=== PATIENT | male | born 1965 | race Caucasian/White ===

== ENCOUNTER 2017-11-11 13:52 | Inpatient (IN) | payer BC ==
[~2017-11-11] VITALS: Ht 177.8 cm; Wt 126.0 kg
[~2017-11-11 13:52] MED LIST: ALEVE220 M2 PO; AZOR 10/40 M1 TABLET PO; CRESTOR; CRESTOR40 MG PO; LO-DOSE ASPIRIN81 M1 PO; METOPROLOL SUCC25 MG PO; [UNRECOGNIZED DRUG - REMARK]
[2017-11-11 15:06] LABS: EOSINOPHIL (%) 0.8 % (0-5); EOSINOPHIL COUNT 0.1 K/uL (0-0.3); HEMATOCRIT 43.1 % (38.0-50.0); IMMATURE GRANULOCYTE COUNT 0.1 K/uL; LYMPHOCYTE COUNT 1.7 K/uL (1.0-2.8); MCH 30.1 PG (29.0-34.0); MCHC 34.1 G/DL (30.0-36.0); MCV 88.3 FL (86-99); MONOCYTE (%) 8.1 % (3-12); NEUTROPHIL (%) 75.5 % (45-76); PLATELET COUNT 241 K/uL (156-360); RBC DIS.WIDTH-CV 14.1 % (11.8-14.6); RBC DIS.WIDTH-SD 45.7 % (39-53); RED BLOOD COUNT 4.88 M/uL (4.00-5.50); WHITE BLOOD COUNT 11.9 K/uL (4.1-10.2)
[2017-11-11 15:20] LABS: CHLORIDE 103 mEq/L (99-109); POTASSIUM 3.3 mEq/L (3.7-5.4); SODIUM 142 mEq/L (136-147)
[2017-11-11 15:22] LABS: GLUCOSE 120 mg/dL (70-99)
[2017-11-11 15:23] LABS: ANION GAP 13 MEQ/L (2-14)
[2017-11-11 15:26] LABS: GFR ESTIMATE (CALCULATED) > 59 mL/min/ (58.99-99999)
[2017-11-11 15:27] LABS: UREA NITROGEN (BUN) 14 mg/dL (9-23)
[2017-11-11] MEDS ORDERED: HYDROCHLOROTH12.5 M3 PO (16:25)
[2017-11-11 17:24] LABS: HDL CHOLESTEROL 28 MG/DL (Desirable>=40); LDL CHOLESTEROL 179 mg/dL (Desirable<100); NON-HDL CHOLESTEROL 218 mg/dL (Desirable<160); TOTAL CHOLESTEROL 246 mg/dL (Desirable<200); TRIGLYCERIDES 197 MG/DL (Normal: <150)
[2017-11-11 17:48] VITALS: BP 147/69
[2017-11-12 00:05] VITALS: BP 142/69
[2017-11-12 04:11] VITALS: BP 151/66
[2017-11-12 06:42] LABS: METH RESISTANT S AUREUS PCR NEGATIVE (NEGATIVE)
[2017-11-12 06:44] LABS: PROBE CHECK PASS; SPECIMEN PROCESSING CONTROL PASS
[2017-11-12 07:04] LABS: HEMATOCRIT 38.3 % (38.0-50.0); MCHC 33.4 G/DL (30.0-36.0); MCV 89.7 FL (86-99); MEAN PLAT.VOLUME 10.9 uM^3 (9.0-12.4); PLATELET COUNT 218 K/uL (156-360); RBC DIS.WIDTH-CV 14.5 % (11.8-14.6); RBC DIS.WIDTH-SD 47.4 % (39-53); RED BLOOD COUNT 4.27 M/uL (4.00-5.50)
[2017-11-12 07:39] LABS: ANION GAP 10 MEQ/L (2-14); CHLORIDE 103 MEQ/L (99-109); GFR ESTIMATE (CALCULATED) > 59 mL/min/ (58.99-99999); GLUCOSE 104 mg/dL (70-99); POTASSIUM 3.3 MEQ/L (3.7-5.4); SAMPLE HEMOLYSIS CHECK 0; SAMPLE ICTERIC CHECK 0; SAMPLE LIPEMIA CHECK 0; SODIUM 142 MEQ/L (136-147); UREA NITROGEN (BUN) 12 mg/dL (9-23)
[2017-11-12 08:06] VITALS: BP 144/75
[2017-11-12 16:47] VITALS: BP 141/68
[2017-11-12 23:10] VITALS: BP 148/71
[2017-11-13 03:40] LABS: HEMATOCRIT 41.5 % (38.0-50.0); MCH 29.9 PG (29.0-34.0); MCHC 33.3 G/DL (30.0-36.0); MCV 89.8 FL (86-99); MEAN PLAT.VOLUME 10.5 uM^3 (9.0-12.4); PLATELET COUNT 269 K/uL (156-360); RBC DIS.WIDTH-CV 14.4 % (11.8-14.6); RBC DIS.WIDTH-SD 47.5 % (39-53); RED BLOOD COUNT 4.62 M/uL (4.00-5.50); WHITE BLOOD COUNT 14.4 K/uL (4.1-10.2)
[2017-11-13 07:10] VITALS: BP 168/79
[2017-11-13 15:20] VITALS: BP 145/62
[2017-11-13 23:40] VITALS: BP 138/68
[2017-11-14 06:52] LABS: ANION GAP 8 MEQ/L (2-14); CHLORIDE 105 MEQ/L (99-109); GFR ESTIMATE (CALCULATED) 57 mL/min/ (58.99-99999); GLUCOSE 98 mg/dL (70-99); POTASSIUM 3.6 MEQ/L (3.7-5.4); SAMPLE HEMOLYSIS CHECK 1; SAMPLE ICTERIC CHECK 0; SAMPLE LIPEMIA CHECK 0; SODIUM 141 MEQ/L (136-147); UREA NITROGEN (BUN) 13 mg/dL (9-23)
[2017-11-14 07:05] VITALS: BP 159/73
[2017-11-14 07:05] LABS: HEMATOCRIT 36.4 % (38.0-50.0); MCH 29.6 PG (29.0-34.0); MCHC 33.2 G/DL (30.0-36.0); MEAN PLAT.VOLUME 10.2 uM^3 (9.0-12.4); PLATELET COUNT 299 K/uL (156-360); RBC DIS.WIDTH-CV 14.1 % (11.8-14.6); RBC DIS.WIDTH-SD 45.8 % (39-53); RED BLOOD COUNT 4.09 M/uL (4.00-5.50); WHITE BLOOD COUNT 14.9 K/uL (4.1-10.2)
[2017-11-14 12:28] LABS: ADD MIUA? NO; BILIRUBIN NEGATIVE; BLOOD NEGATIVE; COLOR YELLOW ((YELLOW)); GLUCOSE (STRIP) NEGATIVE; KETONES NEGATIVE; LEUKOCYTES NEGATIVE; NITRITE NEGATIVE; PROTEIN (STRIP) NEGATIVE; UCUL ADDED? NO
[2017-11-14 15:16] VITALS: BP 159/77
[2017-11-14 23:18] VITALS: BP 144/72
[2017-11-15 06:58] LABS: BASOPHIL COUNT 0.1 K/uL (0-0.1); EOSINOPHIL (%) 3.1 % (0-5); EOSINOPHIL COUNT 0.4 K/uL (0-0.3); IMMATURE GRANULOCYTE (%) 4.1 % (0.0-0.7); IMMATURE GRANULOCYTE COUNT 0.5 K/uL; INSTRUMENT ABS NEUTROPHIL CT 7.6 K/uL; LYMPHOCYTE COUNT 2.7 K/uL (1.0-2.8); MCH 29.4 PG (29.0-34.0); MCHC 32.7 G/DL (30.0-36.0); MCV 89.8 FL (86-99); MONOCYTE (%) 9.3 % (3-12); MONOCYTE COUNT 1.2 K/uL (0-0.8); NEUTROPHIL (%) 61.1 % (45-76); NEUTROPHIL COUNT 7.6 K/uL (1.8-6.4); PLATELET COUNT 373 K/uL (156-360); RBC DIS.WIDTH-SD 46.3 % (39-53); RED BLOOD COUNT 4.12 M/uL (4.00-5.50); WHITE BLOOD COUNT 12.4 K/uL (4.1-10.2)
[2017-11-15 07:35] LABS: ALKALINE PHOSPHATASE 122 IU/L (3-129); ANION GAP 10 MEQ/L (2-14); CHLORIDE 105 MEQ/L (99-109); GFR ESTIMATE (CALCULATED) 57 mL/min/ (58.99-99999); GLUCOSE 93 mg/dL (70-99); POTASSIUM 3.8 MEQ/L (3.7-5.4); SAMPLE HEMOLYSIS CHECK 0; SAMPLE ICTERIC CHECK 0; SAMPLE LIPEMIA CHECK 0; SODIUM 142 MEQ/L (136-147); TOTAL BILIRUBIN 0.6 MG/DL (0.0-1.0); UREA NITROGEN (BUN) 12 mg/dL (9-23)
[2017-11-15] MEDS ORDERED: ATORVASTATIN CA40 MG PO (08:00)
[2017-11-15] MEDS ORDERED: CLEOCIN300 MG PO (08:00)
[2017-11-15 08:01] VITALS: BP 142/60
[2017-11-15] MEDS ORDERED: ULTRAM50 MG PO (08:02)
== END 2017-11-15 10:05 | disposition home or self-care (01) | DRG 603 ==
LOC: EME 13:52 → ENRESERV 16:18 → EDOF 16:18 → 3EAST 16:18 → ENRESERV 16:58 → 3EAST 17:23
PROVIDERS: Family Medicine; Hospitalist; Internal Medicine; Nurse Practitioner Family
DX: L03.116 Cellulitis of left lower limb (principal); E87.6 Hypokalemia; G47.33 Obstructive sleep apnea (adult) (pediatric); I10 Essential (primary) hypertension; E66.9 Obesity, unspecified; I25.10 Atherosclerotic heart disease of native coronary artery without angina pectoris; E78.5 Hyperlipidemia, unspecified; F17.210 Nicotine dependence, cigarettes, uncomplicated; J45.909 Unspecified asthma, uncomplicated; M17.0 Bilateral primary osteoarthritis of knee; Z80.41 Family history of malignant neoplasm of ovary; Z88.0 Allergy status to penicillin; R59.9 Enlarged lymph nodes, unspecified; Z68.39 Body mass index [BMI] 39.0-39.9, adult; M79.605 Pain in left leg
CPT/HCPCS: 73590; 80048; 80053; 80061; 80202; 81003; 83605; 85025; 85027; 87040; 87641; 90686; 93971; 99281; 99284; A6212; J1650; J3370